=== PATIENT | female | born 1995 | race Caucasian/White ===

== ENCOUNTER 2021-03-05 13:47 | Outpatient (CLI) | payer BC | END 2021-03-05 13:48 | disposition home or self-care (01) | LOC: BICMRI 13:47 | PROVIDERS: ATTEND Nurse Practitioner Acute Care | DX: G35 Multiple sclerosis (principal); R93.7 Abnormal findings on diagnostic imaging of other parts of musculoskeletal system | CPT/HCPCS: 70553; 72156 ==

== ENCOUNTER 2022-03-25 08:25 | Outpatient (CLI) | payer BC ==
[2022-03-25] MEDS ORDERED: Magnevist 469MG/ML 20 ML VIAL ONE ×3 (13:09)
== END 2022-03-25 08:26 | disposition home or self-care (01) ==
LOC: BICMRI 08:25
PROVIDERS: ATTEND Psychiatry & Neurology Neurology
DX: G35 Multiple sclerosis (principal); M47.814 Spondylosis without myelopathy or radiculopathy, thoracic region; M51.24 Other intervertebral disc displacement, thoracic region; R93.7 Abnormal findings on diagnostic imaging of other parts of musculoskeletal system; G37.8 Other specified demyelinating diseases of central nervous system; G93.89 Other specified disorders of brain
CPT/HCPCS: 70553; 72156; 72157; A9579

== ENCOUNTER 2024-03-23 11:02 | Outpatient (CLI) | payer BC | END 2024-03-23 11:03 | disposition home or self-care (01) | LOC: EKG 11:02 | PROVIDERS: ATTEND Psychiatry & Neurology Neurology | DX: G35 Multiple sclerosis (principal) | CPT/HCPCS: 93005; 93010 ==

== ENCOUNTER 2024-08-30 12:27 | Outpatient (CLI) | payer BC | END 2024-08-30 12:28 | disposition home or self-care (01) | LOC: BICMRI 12:27 | PROVIDERS: ATTEND Psychiatry & Neurology Neurology | DX: G35 Multiple sclerosis (principal); G37.9 Demyelinating disease of central nervous system, unspecified; R93.0 Abnormal findings on diagnostic imaging of skull and head, not elsewhere classified | CPT/HCPCS: 70553; 72156 ==